=== PATIENT | male | born 1975 | race Hispanic/Latino ===

== ENCOUNTER 2020-04-30 02:30 | Inpatient (IN) | payer OTHER ==
[~2020-04-30] VITALS: Ht 172.7 cm; Wt 68.0 kg
[2020-04-30] MEDS ORDERED: HALOPERIDOL LACTATE 5 MG/ML VIAL ONE (04:42)
[2020-04-30] MEDS ORDERED: DiphenhydrAMINE HCL 50 MG/ML VIAL ONE (04:42)
[2020-04-30] MEDS ORDERED: LORAZEPAM 2 MG/ML 1 ML VIAL ONE (04:43)
[2020-04-30 04:45] LABS: BASOPHILS % (AUTO) 0.5 % (0.0-5.0); EOSINOPHILS % (AUTO) 0.5 % (0.0-8.0); HEMATOCRIT 39.6 % (42-54); LYMPHOCYTES % (AUTO) 10.7 % (21.0-51.0); MEAN CORPUSCULAR HEMOGLOBIN 31.3 pg (27.0-33.0); MEAN CORPUSCULAR HGB CONC 34.3 g/dL (32.0-36.0); MEAN CORPUSCULAR VOLUME 91.2 fL (79-99); MONOCYTES % (AUTO) 7.9 % (3.0-13.0); PLATELET COUNT (AUTO) 195 K/uL (130-400); RED BLOOD CELL COUNT(AUTO) 4.34 MIL/uL (4.50-6.20); RED CELL DISTRIBUTION WIDTH 12.2 % (11.0-15.5); WHITE BLOOD COUNT (AUTO) 9.5 K/uL (4.8-10.8)
[2020-04-30 04:53] LABS: CARBON DIOXIDE 30 mmol/L (21-32); CHLORIDE 105 mmol/L (101-111); CREATININE 1.1 mg/dL (0.5-1.5); GLOMERULAR FILTR. RATE CALC 77 mL/min (>60); GLUCOSE,RANDOM 91 mg/dL (70-105); SODIUM SERUM 142 mmol/L (136-145); UREA NITROGEN, BLOOD 15 mg/dL (7-18)
[2020-04-30 05:04] LABS: ALANINE AMINOTRANSFERASE 22 U/L (12-78); ALBUMIN 3.9 g/dL (3.5-5.0); ALCOHOL, BLOOD < 3 mg/dL (0-10); ASPARTATE AMINOTRANSFERASE 24 U/L (10-37); BILIRUBIN,TOTAL 1.3 mg/dL (0.2-1.0); TOTAL PROTEIN, SERUM 6.8 g/dL (6.0-8.3)
[2020-04-30] MEDS ORDERED: IOHEXOL 350 MG/ML 100ML INFUS..BTL IV ONE (05:12)
[2020-04-30 05:18] LABS: INR 1.1 (0.85-1.15); PROTHROMBIN TIME 11.9 SEC (9.6-11.6)
[2020-04-30 05:20] LABS: PARTIAL THROMBOPLASTIN TIME 24.8 SEC (26.3-35.5)
[2020-04-30 07:05] LABS: APPEARANCE,URINE Clear (CLEAR); BILIRUBIN,URINE Negative (NEGATIVE); COLOR,URINE Yellow (YELLOW); GLUCOSE, URINE (UA) Negative (NEGATIVE); KETONES,URINE Trace mg/dL (NEGATIVE); LEUKOCYTE ESTERASE ,URINE Negative (NEGATIVE); NITRATE,URINE Negative (NEGATIVE); OCCULT BLOOD,URINE Small (NEGATIVE); PH,URINE 7.5 (5.0-8.0); PROTEIN,URINE Negative (NEGATIVE)
[2020-04-30 07:13] LABS: AMPHET/METH SCREEN,URINE NEGATIVE (NEGATIVE); BARBITURATE SCREEN, URINE NEGATIVE (NEGATIVE); BENZODIAZEPINES SCREEN,URINE POSITIVE (NEGATIVE); CANNABINOID SCREEN,URINE POSITIVE (NEGATIVE); COCAINE SCREEN,URINE POSITIVE (NEGATIVE); OPIATE SCREEN,URINE NEGATIVE (NEGATIVE); PHENCYCLIDINE SCREEN,URINE NEGATIVE (NEGATIVE)
[2020-04-30 08:05] LABS: BACTERIA,URINE Few /HPF (None Seen)
[2020-04-30 08:06] LABS: RBC,URINE 0-1 /HPF (0-1); SQUAMOUS EPITHELIAL CELL,UR 0-2 /HPF (0-2)
[2020-04-30] MEDS ORDERED: SODIUM CHLORIDE 0.9% 1000ML 1,000 ML IV ONE (09:15)
[2020-04-30 10:40] VITALS: BP 110/58
[2020-04-30 16:00] VITALS: BP 97/49
[2020-04-30] MEDS ORDERED: THIAMINE HCL 100 MG, FOLIC ACID 1 MG, M.V.I. IV [ADULT] 10 ML in SODIUM CHLORIDE 0.9% 1... IV SCH (20:00)
[2020-04-30] MEDS ORDERED: CHLORDIAZEPOXIDE HCL 25 MG CAP PO PRN ×2 (20:00)
[2020-04-30] MEDS ORDERED: PHARMACY COMMUNICATION MISC PRN (20:00)
[2020-04-30] MEDS ORDERED: LORAZEPAM 2 MG/ML 1 ML VIAL IVP PRN ×2 (20:00)
[2020-04-30 20:41] VITALS: BP 111/68
[2020-05-01 00:25] VITALS: BP 107/58
[2020-05-01 04:15] VITALS: BP 108/43
[2020-05-01 04:57] LABS: THYROID STIMULATING HORMONE 0.34 uIU/mL (0.36-3.74)
[2020-05-01 08:00] VITALS: BP 131/76
[2020-05-01] MEDS ORDERED: MORPHINE SULFATE 2 MG/ML 1ML SYG IVP PRN (08:00)
[2020-05-01] MEDS ORDERED: ONDANSETRON HCL 4 MG/2 ML VIAL IVP PRN (08:00)
[2020-05-01 08:23] LABS: HEMATOCRIT 38.3 % (42-54); MEAN CORPUSCULAR HGB CONC 33.2 g/dL (32.0-36.0); MEAN CORPUSCULAR VOLUME 93.4 fL (79-99); PLATELET COUNT (AUTO) 192 K/uL (130-400); RED CELL DISTRIBUTION WIDTH 12.4 % (11.0-15.5); WHITE BLOOD COUNT (AUTO) 4.8 K/uL (4.8-10.8)
[2020-05-01 08:40] LABS: CREATININE 1.2 mg/dL (0.5-1.5)
[2020-05-01 09:28] LABS: EOSINOPHILS % (MANUAL) 2 % (1-6); LYMPHOCYTES % (MANUAL) 30 % (22-44); MAN.DIFF COMMENT-IMPRESSION MANUAL DIFFERENTIAL; MONOCYTES % (MANUAL) 1 % (2-9); SEGMENTED NEUTROPHILS % 67 % (40-70)
[2020-05-01 09:31] LABS: PLATELET MORPHOLOGY COMMENT ADEQUATE
[2020-05-01] MEDS: FOLIC ACID 1 MG TABLET PO SCH (10:02)
[2020-05-01] MEDS: MULTIVITAMIN TABLET PO SCH (10:02)
[2020-05-01] MEDS: THIAMINE HCL 100 MG/ML 2ML VIAL IM SCH (10:02)
[2020-05-01 12:00] VITALS: BP 119/76
[2020-05-01 16:00] VITALS: BP 96/51
== END 2020-05-01 17:45 | disposition home or self-care (01) | DRG 552 ==
LOC: EDH 02:30 → EDHIP 02:31 → OBSVTOIN 02:31 → 3DH 10:37
PROVIDERS: ADMIT Surgery; ATTEND Surgery
DX: S12.690A Other displaced fracture of seventh cervical vertebra, initial encounter for closed fracture (principal); F10.239 Alcohol dependence with withdrawal, unspecified; F19.239 Other psychoactive substance dependence with withdrawal, unspecified; Z04.3 Encounter for examination and observation following other accident; V89.2XXA Person injured in unspecified motor-vehicle accident, traffic, initial encounter; Y93.89 Activity, other specified; Y99.8 Other external cause status; Y92.410 Unspecified street and highway as the place of occurrence of the external cause; F10.229 Alcohol dependence with intoxication, unspecified; Y90.0 Blood alcohol level of less than 20 mg/100 ml; T50.905A Adverse effect of unspecified drugs, medicaments and biological substances, initial encounter; Y92.89 Other specified places as the place of occurrence of the external cause
CPT/HCPCS: 36415; 70450; 71260; 72125; 74177; 80048; 80053; 80305; 81001; 82140; 82550; 82607; 82746; 82948; 84443; 84484; 85025; 85610; 85730; G0378; J1200; J1630; J2060; J3411; J3490; J7030; Q9967